=== PATIENT | female | born 1940 | race Caucasian/White ===

== ENCOUNTER → 2017-01-04 | Outpatient (CLI) | payer OTHER ==
[~2017-01-04] MED LIST: BYSTOLIC 5 MG5 M1; CIPROFLOXIN HC2.5 M1 OPHTHALMIC; COZAAR 25 MG TA25 M1; FLOXIN OTI0.3 %/5 M1 OT; KEFLEX500 MG PO; LIPITOR 10 MG10 M1; NORCO 5-325 TA1 EACH PO; NORVASC2.5 M1; WELCHOL3.75 GM
== END ==
LOC: CAT 09:58 → EDSTATUS 15:03
DX: Z13.6 Encounter for screening for cardiovascular disorders (principal)

== ENCOUNTER 2017-01-13 09:29 | Inpatient (IN) | payer OTHER ==
[~2017-01-13] VITALS: Ht 162.6 cm; Wt 71.2 kg
--- NOTE | ~2017-01-13 | EKG ---
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 JAIMES : 1940 Requested By: Faiza Lowry Order Number: [id number] MD: Kwame Jordan Measurements Intervals [place] Rate: 102 P: 72 OR: 177 QRS: 34 QRSD: 118 T: 31 QT: 385 QTc: 502 Interpretive Statements Sinus tachycardia Incomplete right bundle branch block Probable inferior infarct, old Probable anterolateral infarct, acute Compared to ECG 01/13/2017 10:04:23 Incomplete right bundle-branch block now present Myocardial infarct finding now present Electronically Signed On 01-18-2017 8:31:34 CDT by Kwame Jordan [email or web address] <ELECTRONICALLY SIGNED> By: Kwame Jordan MD, [facility] 01/18/17 0831 1548 1548 Kwame Jordan MD, [facility] /EPI
--- NOTE | ~2017-01-13 | 2DMMODE ---
[facility] [address] [place] [address] 2 D/M-MODE ECHOCARDIOGRAM Name: DIPAK ESCOBEDO STEPHANIE Room #: REG CL Marlen#: [id number] Admission: 01/13/17 Attend Phys: Walter Andres Discharge: Date of : 42 Date of Service: 01/13/17 1635 Report #: [id number] THIS REPORT FOR: //name// APPROVED REPORT Study performed: 01/13/2017 15:40:24 EXAM: Comprehensive 2D, Doppler, and color-flow Echocardiogram Patient Location: Bedside Room #: 5 Status: stat Other Information Study Quality: Adequate Indications Pre-Op Diabetes CAD Hypertension/HDD 2D Dimensions RVDd: 22.00 mm LVEF(%): 61.56 (>50%) IVSd: 8.14 (7-11mm) LVOT Diam: 17.73 (18-24mm) LVDd: 35.94 mm PWd: 7.18 (7-11mm) Ascending Ao: 25.71 (22-36mm) LVDs: 24.32 (25-40mm) Aortic Root: 25.99 mm IVC: 15.00 mm Callahan's LVEF: 61.56 % Volumes Left Atrial Volume (Systole) Single Plane 4CH: 33.38 mL Single Plane 2CH: 28.78 mL LA ESV Index: 19.00 mL/m2 Aortic Valve AoV Peak Gerald.: 1.42 m/s AO Peak Gr.: 8.09 mmHg LVOT Max P.02 mmHg LVOT Max V: 1.00 m/s BAMBI Vmax: 1.74 cm2 Mitral Valve E/A Ratio: 0.6 MV Decel. Time: 304.33 ms [facility] [address] [place] [address] 2 D/M-MODE ECHOCARDIOGRAM Name: DIPAK ESCOBEDO STEPHANIE Room #: [facility] Marlen#: [id number] Admission: 01/13/17 Attend Phys: Walter Andres Discharge: Date of : 42 Date of Service: 01/13/17 1635 Report #: [id number] MV E Max Gerald.: 0.61 m/s MV A Gerald.: 0.94 m/s MV PHT: 88.26 ms IVRT: 129.18 ms Pulmonary Valve PV Peak Gerald.: 0.95 m/s PV Peak Gr.: 3.62 mmHg Pulmonary Vein P Vein S: 0.44 m/s P Vein A: 0.30 m/s P Vein D: 0.28 m/s P Vein A Dur.: 129.2 msec P Vein S/D Ratio: 1.57 Tricuspid Valve RAP Estimate: 5.00 mmHg Left Ventricle The left ventricle is normal size. Regional wall motion is not well visualized but grossly normal. There is normal left ventricular wall thickness. The left ventricular systolic function is normal. The left ventricular ejection fraction is within the normal range. LVEF is 60%. Grade I diastolic dysfunction Right Ventricle The right ventricle is normal size. The right ventricular systolic function is normal. Atria The left atrium size is normal. The right atrium size is normal. Aortic Valve Aortic valve is calcified, trileaflet. No aortic regurgitation is present. There is no aortic valvular stenosis. Mitral Valve The mitral valve is normal in structure. There is no mitral valve regurgitation noted. No evidence of mitral valve stenosis. Tricuspid Valve The tricuspid valve is normal in structure. There is no tricuspid valve regurgitation noted. Pulmonic Valve The pulmonary valve is normal in structure. There is no pulmonic valvular regurgitation. [address] [address] 2 D/M-MODE ECHOCARDIOGRAM Name: DIPAK ESCOBEDO STEPHANIE Room #: REG BRIGETTE Gee#: [id number] Admission: 01/13/17 Attend Phys: Walter Andres Discharge: Date of : 42 Date of Service: 01/13/17 1635 Report #: [id number] Great Vessels The aortic root is normal in size. IVC is normal in size and collapses >50% with inspiration. Pericardium There is no pericardial effusion. <Conclusion> The left ventricular systolic function is normal. Regional wall motion is not well visualized but grossly normal. LVEF is 60%. Grade I diastolic dysfunction Aortic valve is calcified, trileaflet. No aortic regurgitation or stenosis. The mitral valve is normal in structure. No mitral valve regurgitation noted. Pulmonary artery pressure could not be reliably ascertained There is no pericardial effusion. <ELECTRONICALLY SIGNED> By: Kwame Jordan MD, [facility] 01/13/17 1635 1635 1635 Kwame Jordan MD, [facility] /INF
--- NOTE | ~2017-01-13 | EKG ---
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1940 Requested By: Faiza Lowry Order Number: [id number] MD: Kwame Jordan Measurements Intervals [place] Rate: 83 P: 21 TN: 172 QRS: 71 QRSD: 97 T: 9 QT: 411 QTc: 483 Interpretive Statements Sinus rhythm Anterolateral infarct, acute (LAD) Baseline wander in lead(s) V6 Compared to ECG 01/13/2017 10:04:23 anterior Q waves are more prominent Electronically Signed On 01-18-2017 8:55:44 CDT by Kwame Jordan [email or web address] <ELECTRONICALLY SIGNED> By: Kwame Jordan MD, [facility] 01/18/17 0855 0710 Kwame Jordan MD, [facility] /EPI
--- NOTE | ~2017-01-13 | EKG ---
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
--- NOTE | ~2017-01-13 | D ---
[facility] [place] [address] DISCHARGE SUMMARY Name: DIPAK ESCOBEDO Room #: 212-P DIS IN M.R.#: [id number] Admission: 01/13/17 Attend Phys: Walter Lane Discharge: 01/20/17 Date of : 42 Report #: [id number] THIS REPORT FOR: //name// CC: Walter Loomis Epstein DATE OF SERVICE: 01/20/2017 ADMITTING DIAGNOSES: 1. Abnormal perfusion scan. 2. Chest pain. DISCHARGE DIAGNOSES: 1. Coronary artery disease. 2. Dyslipidemia. PROCEDURE PERFORMED: 1. Left heart catheterization. 2. Aortocoronary bypass grafting. FOLLOWUP: Dr. Lane in 3 weeks and cardiothoracic surgery as per their orders. DISCHARGE MEDICATIONS: Metoprolol 25 mg p.o. b.i.d., atorvastatin 40 mg daily, omeprazole 20 mg daily, aspirin 325 daily, sublingual nitroglycerin p.r.n. DISCHARGE DIET: [place] [employer] step 1 diet. BRIEF CLINICAL HISTORY: See history and physical in chart. HOSPITAL COURSE: The patient was admitted to the hospital and underwent uncomplicated left heart catheterization. This demonstrated the presence of significant multivessel coronary artery disease best treated surgically. Consultation was obtained. The patient underwent uncomplicated aortocoronary bypass grafting with SVG to the circumflex and STUART to the LAD. Her postoperative course was electrically hemodynamically stable. She continued to improve on a daily basis and is being discharged in stable and improved condition with the previously stated discharge instructions and medications. <ELECTRONICALLY SIGNED> By: Walter Lane MD 01/25/[address] MD /nt
--- NOTE | ~2017-01-13 | CATHLAB ---
[facility] [address] [place] [address] INVASIVE PROCEDURE REPORT Name: DIPAK ESCOBEDO NOVEMBER Room #: 213-P ADM IN M.R.#: [id number] Admission: 01/13/17 Attend Phys: Walter Andres Discharge: Date of : 42 Date of Service: 01/14/17 1339 Report #: [id number] THIS REPORT FOR: //name// APPROVED REPORT Patient Details Patient Status: Out-Patient Room #: The patient is a 76 year-old female Event Personnel Walter Lane Director Oracle Database, Sarah Briscoe Monitor, Carlee Slade Monitor, Dianne Coyle RN RN, Richard Shea Scrub Procedures Performed Left heart catheterization, selective left and right coronary angiography, measurement of left ventricular end-diastolic pressure, supervision of conscious sedation Indication Positive stress test, Chest pain Procedure Narrative The Right Groin^ was infiltrated with 1% Lidocaine subcutaneous anesthesia. A PINNACLE 4FR Sheath #[id number] sheath was inserted into the RFA^. Coronary angiography was performed using coronary diagnostic catheters. The right coronary system was accessed and visualized with a JR4 catheter. The left coronary system was accessed and visualized with a JL4 catheter. The left ventricle was accessed and visualized with a PIGTAIL catheter. Left ventricular/Aortic Valve gradient assessed via catheter pullback. Hemostasis was obtained with manual pressure following sheath removal without any complications. The patient tolerated the procedure well and there were no complications associated with the procedure. There was no hematoma. Intraoperative Conscious Sedation Sedation start time: 13:32 Case end Time: 13:44 Versed 2.0 mg Fluoro Time: 2.17 minutes Dose: DAP 1702.40 cGycm2 243 mGy Contrast Type and Amount: Omnipaque 60 ml [facility] [address] [place] [address] INVASIVE PROCEDURE REPORT Name: DIPAK ESCOBEDO STEPHANIE Room #: 213-P [facility] ..#: [id number] Admission: 01/13/17 Attend Phys: Walter Andres Discharge: Date of : 42 Date of Service: 01/14/17 1339 Report #: [id number] Diagnostic Cath Left Main Normal origin and caliber bifurcates into left anterior descending left circumflex free of high-grade obstructive disease LAD Moderate caliber type II vessel which courses in the anterior interventricular sulcus in a rise to septal and diagonal branches. After a small caliber septal origin in the midportion of the mid LAD there is an eccentric 75 or greater percent stenosis of the LAD proper then continues towards the apex and terminates as a small bifurcating vessel at the apex Diagonal 1 Small-caliber vessel which had a 50% lesion proximally. Circumflex Moderate caliber vessel with a 50% lesion proximally. The vessel continues laterally where it terminates as a moderate caliber lateral wall marginal. At the beginning of the marginal portion there is a high-grade greater than 90% lesion any tortuous segment of the circumflex proper Right Coronary Moderate caliber vessel which appears to have an eccentric ostial lesion. Did continues any AV groove posteriorly gives rise to a small posterior descending artery and a small posterolateral branch R PDA Small-caliber for vessel free of high-grade disease RPLV Small caliber vessel which has a 90% proximal lesion then reconstitutes in courses in the inferolateral wall towards the apex Left Ventriculography Left Ventriculography was not performed. Hemodynamics The aortic pressure is 146/63 mmHg with a mean of 94 mmHg. The left ventricular pressure is 167/-3 mmHg with a mean of mmHg. The left ventricular end diastolic pressure is 17 mmHg. There was no gradient across the aortic valve upon pullback. Pullback from the left ventricle to the aorta revealed no gradient across the aortic valve. Conclusion 1. Coronary artery disease severe three-vessel 2. Abnormal hemodynamics with elevated left ventricular end-diastolic pressure Recommendations [facility] [address] [place] [address] INVASIVE PROCEDURE REPORT Name: DIPAK ESCOBEDO STEPHANIE Room #: 213-P [facility] IN M.R.#: [id number] Admission: 01/13/17 Attend Phys: Walter Andres Discharge: Date of : 42 Date of Service: 01/14/17 1339 Report #: [id number] Cardiac Risk Reduction Program CABG <ELECTRONICALLY SIGNED> By: Walter Lane MD 01/14/[address] MD /INF
[2017-01-13] MEDS ORDERED: LIPITOR40 MG PO (10:01)
[2017-01-13] MEDS ORDERED: COZAAR 50 MG TA50 M2 PO (10:02)
[2017-01-13] MEDS ORDERED: ASPIR 8181 M1 PO (10:02)
[2017-01-13] MEDS ORDERED: PRILOSEC OTC20 MG PO (10:02)
[2017-01-13 10:16] VITALS: BP 131/74
[2017-01-13 10:24] LABS: HEMATOCRIT 38.8 % (37.0-47.0); HEMOGLOBIN 13.3 gm/dL (12.0-15.0); MCH 30.3 pg (26.0-34.0); MCHC 34.3 g/dL (28.0-37.0); MCV 88.4 fL (80.0-100.0); RBC 4.39 mil/uL (4.20-5.00); RDW 13.6 % (10.5-14.5); WBC 5.9 thou/uL (4.0-11.0)
[2017-01-13 10:29] LABS: CALCIUM 9.4 mg/dL (8.5-10.1); CREATININE 1.1 mg/dL (0.6-1.0); POTASSIUM 3.7 mmol/L (3.5-5.1)
[2017-01-13 16:26] LABS: HEMATOCRIT 38.6 % (37.0-47.0); HEMOGLOBIN 13.1 gm/dL (12.0-15.0); MCH 30.8 pg (26.0-34.0); MCHC 33.9 g/dL (28.0-37.0); MCV 90.8 fL (80.0-100.0); RBC 4.25 mil/uL (4.20-5.00); RDW 13.8 % (10.5-14.5); WBC 6.3 thou/uL (4.0-11.0)
[2017-01-13 16:33] LABS: CALCIUM 9.3 mg/dL (8.5-10.1); POTASSIUM 3.7 mmol/L (3.5-5.1)
[2017-01-13 16:39] LABS: ALBUMIN 3.5 g/dL (3.4-5.0); TOTAL BILIRUBIN 0.8 mg/dL (<0.1-1.0); TOTAL PROTEIN 7.2 g/dL (6.4-8.2)
[2017-01-13 16:58] LABS: APTT 25.7 Seconds (24.5-32.8); PROTIME 10.3 Seconds (9.3-11.4)
[2017-01-13 17:50] VITALS: BP 156/78
[2017-01-13 20:31] VITALS: BP 122/65
[2017-01-13 23:56] VITALS: BP 122/57
[2017-01-14 01:11] LABS: GLYCOHEMOGLOBIN (HGB A1C) 5.8 % (4.8-5.6)
[2017-01-14 04:00] VITALS: BP 152/82
[2017-01-14 08:37] VITALS: BP 151/83
[2017-01-14 12:27] VITALS: BP 141/80
[2017-01-14 16:21] VITALS: BP 154/88
[2017-01-14 17:39] LABS: URINE BILIRUBIN NEGATIVE (Negative); URINE BLOOD TRACE (Negative); URINE COLOR YELLOW; URINE GLUCOSE-RANDOM* NEGATIVE (Negative); URINE KETONES NEGATIVE (Negative); URINE LEUKOCYTES-REFLEX NEGATIVE (Negative); URINE PROTEIN (DIPSTICK) NEGATIVE (Negative); URINE SPECIFIC GRAVITY 1.015 (1.003-1.035); URINE UROBILINOGEN 0.2 E.U./dl (0.2-1.0)
[2017-01-14 20:37] VITALS: BP 151/76
[2017-01-15] VITALS (9 sets, daily range): BP systolic 97–167; BP diastolic 56–83
[2017-01-15 13:37] LABS: POC BE -2 mmol/L (-2.0 to +3.0); POC CA IONIZED 4.1 mg/dL (4.5-5.3); POC FiO2 100 %; POC GLUCOSE 156 mg/dL (70-99); POC HCO3 23.3 mmol/L (22.0-26.0); POC HEMOGLOBIN 7.5 g/dL (12.0-15.0); POC POTASSIUM 3.9 mmol/L (3.5-5.1); POC SODIUM 136 mmol/L (136-145); POC pCO2 39.1 mmHg (35.0-45.0); POC pH 7.383 (7.360-7.450)
[2017-01-15 13:37] LABS: POC BE 2 mmol/L (-2.0 to +3.0); POC CA IONIZED 4.3 mg/dL (4.5-5.3); POC FiO2 100 %; POC GLUCOSE 157 mg/dL (70-99); POC HCO3 26.8 mmol/L (22.0-26.0); POC HEMOGLOBIN 7.8 g/dL (12.0-15.0); POC POTASSIUM 3.9 mmol/L (3.5-5.1); POC SODIUM 139 mmol/L (136-145); POC pCO2 44.5 mmHg (35.0-45.0); POC pH 7.388 (7.360-7.450)
[2017-01-15 13:37] LABS: POC BE 0 mmol/L (-2.0 to +3.0); POC CA IONIZED 4.8 mg/dL (4.5-5.3); POC FiO2 100 %; POC GLUCOSE 121 mg/dL (70-99); POC HCO3 24.3 mmol/L (22.0-26.0); POC HEMOGLOBIN 10.5 g/dL (12.0-15.0); POC POTASSIUM 3.8 mmol/L (3.5-5.1); POC SODIUM 140 mmol/L (136-145); POC pCO2 34.1 mmHg (35.0-45.0)
[2017-01-15 13:37] LABS: POC BE 2 mmol/L (-2.0 to +3.0); POC CA IONIZED 5.6 mg/dL (4.5-5.3); POC FiO2 100 %; POC GLUCOSE 139 mg/dL (70-99); POC HCO3 26.9 mmol/L (22.0-26.0); POC HEMOGLOBIN 6.8 g/dL (12.0-15.0); POC POTASSIUM 3.6 mmol/L (3.5-5.1); POC SODIUM 141 mmol/L (136-145); POC pCO2 41.1 mmHg (35.0-45.0); POC pH 7.423 (7.360-7.450)
[2017-01-15 13:37] LABS: POC BE -3 mmol/L (-2.0 to +3.0); POC CA IONIZED 4.4 mg/dL (4.5-5.3); POC FiO2 100 %; POC GLUCOSE 163 mg/dL (70-99); POC HCO3 23.4 mmol/L (22.0-26.0); POC HEMOGLOBIN 7.1 g/dL (12.0-15.0); POC POTASSIUM 4.1 mmol/L (3.5-5.1); POC SODIUM 136 mmol/L (136-145); POC pCO2 46.4 mmHg (35.0-45.0)
[2017-01-15 13:37] LABS: POC BE -1 mmol/L (-2.0 to +3.0); POC CA IONIZED 5.2 mg/dL (4.5-5.3); POC FiO2 100 %; POC GLUCOSE 120 mg/dL (70-99); POC HCO3 23.5 mmol/L (22.0-26.0); POC HEMOGLOBIN 5.8 g/dL (12.0-15.0); POC POTASSIUM 3.3 mmol/L (3.5-5.1); POC SODIUM 139 mmol/L (136-145); POC pCO2 36.2 mmHg (35.0-45.0); POC pH 7.419 (7.360-7.450)
[2017-01-15 13:37] LABS: POC BE -1 mmol/L (-2.0 to +3.0); POC CA IONIZED 4.7 mg/dL (4.5-5.3); POC FiO2 100 %; POC GLUCOSE 150 mg/dL (70-99); POC HCO3 24.5 mmol/L (22.0-26.0); POC HEMOGLOBIN 10.2 g/dL (12.0-15.0); POC POTASSIUM 3.5 mmol/L (3.5-5.1); POC SODIUM 138 mmol/L (136-145); POC pCO2 41.3 mmHg (35.0-45.0); POC pH 7.382 (7.360-7.450)
[2017-01-15 13:37] LABS: POC BE -7 mmol/L (-2.0 to +3.0); POC CA IONIZED 4.3 mg/dL (4.5-5.3); POC FiO2 100 %; POC GLUCOSE 153 mg/dL (70-99); POC HCO3 19.3 mmol/L (22.0-26.0); POC HEMOGLOBIN 8.8 g/dL (12.0-15.0); POC POTASSIUM 3.8 mmol/L (3.5-5.1); POC SODIUM 139 mmol/L (136-145); POC pH 7.337 (7.360-7.450)
[2017-01-15 13:37] LABS: POC BE -2 mmol/L (-2.0 to +3.0); POC CA IONIZED 5.1 mg/dL (4.5-5.3); POC FiO2 100 %; POC GLUCOSE 99 mg/dL (70-99); POC HCO3 22.8 mmol/L (22.0-26.0); POC HEMOGLOBIN 7.1 g/dL (12.0-15.0); POC POTASSIUM 3.4 mmol/L (3.5-5.1); POC SODIUM 142 mmol/L (136-145); POC pH 7.375 (7.360-7.450)
[2017-01-15 14:09] LABS: HEMATOCRIT 29.6 % (37.0-47.0); MCH 30.8 pg (26.0-34.0); MCHC 34.4 g/dL (28.0-37.0); MCV 89.5 fL (80.0-100.0); RBC 3.31 mil/uL (4.20-5.00); RDW 13.3 % (10.5-14.5); WBC 12.9 thou/uL (4.0-11.0)
[2017-01-15 14:14] LABS: CREATININE 0.9 mg/dL (0.6-1.0); MAGNESIUM 2.5 mg/dL (1.8-2.4); POTASSIUM 4.1 mmol/L (3.5-5.1)
[2017-01-15 14:21] LABS: HEMOGLOBIN 10.2 gm/dL (12.0-15.0)
[2017-01-15 14:24] LABS: ABG SAMPLE TYPE ARTERIAL; HCO3 19.3 mmol/L (22.0-26.0); LACTATE 1.35 mmol/L (0.5-2.0); O2(CT) 16.2 mL/dL (15.0-23.0); O2Hb 94.7 % (92.0-98.0); PCO2 37.4 mmHg (35.0-45.0); PO2 84.7 mmHg (80.0-100.0); STICK SITE LINE; pH 7.331 (7.360-7.450); sO2 95.8 % (92.0-98.0); tCO2 20.5 mmol/L (24.0-30.0)
[2017-01-15 14:25] LABS: TIDAL VOLUME 500 ml
[2017-01-15 14:26] LABS: APTT 30.4 Seconds (24.5-32.8); INR 1.2; PROTIME 12.7 Seconds (9.3-11.4)
[2017-01-15 16:49] LABS: ABG SAMPLE TYPE ARTERIAL; HCO3 19.5 mmol/L (22.0-26.0); LACTATE 1.62 mmol/L (0.5-2.0); O2(CT) 16.6 mL/dL (15.0-23.0); PCO2 30.9 mmHg (35.0-45.0); PO2 134.9 mmHg (80.0-100.0); STICK SITE LINE; TIDAL VOLUME 500 ml; pH 7.418 (7.360-7.450); sO2 98.8 % (92.0-98.0); tCO2 20.5 mmol/L (24.0-30.0)
[2017-01-15 16:50] LABS: ABG COMMENT PRE-CPAP ABG
[2017-01-15 17:56] LABS: APTT 34.2 Seconds (24.5-32.8); INR 1.1; PROTIME 11.5 Seconds (9.3-11.4)
[2017-01-15 18:06] LABS: HEMATOCRIT 33.9 % (37.0-47.0); HEMOGLOBIN 11.7 gm/dL (12.0-15.0); MCH 30.7 pg (26.0-34.0); MCHC 34.4 g/dL (28.0-37.0); MCV 89.2 fL (80.0-100.0); RBC 3.8 mil/uL (4.20-5.00); RDW 13.6 % (10.5-14.5); WBC 15.2 thou/uL (4.0-11.0)
[2017-01-15 18:13] LABS: CALCIUM 8.5 mg/dL (8.5-10.1); MAGNESIUM 2.3 mg/dL (1.8-2.4)
[2017-01-15 20:19] LABS: ABG COMMENT CPAP5/6 50%; ABG SAMPLE TYPE ARTERIAL; BE(vivo) -1.3 mmol/L (-2 to +3); HCO3 22.5 mmol/L (22.0-26.0); LACTATE 2.21 mmol/L (0.5-2.0); O2(CT) 17.4 mL/dL (15.0-23.0); O2Hb 96.5 % (92.0-98.0); Pressure Support 6 cm H20; STICK SITE LINE; pH 7.426 (7.360-7.450); sO2 98.1 % (92.0-98.0); tCO2 23.6 mmol/L (24.0-30.0)
[2017-01-15 21:35] LABS: ABG SAMPLE TYPE ARTERIAL; Face Shield 60 %; HCO3 22.4 mmol/L (22.0-26.0); LACTATE 3.29 mmol/L (0.5-2.0); O2(CT) 17.6 mL/dL (15.0-23.0); O2Hb 97.3 % (92.0-98.0); PCO2 37.1 mmHg (35.0-45.0); STICK SITE LINE; pH 7.399 (7.360-7.450); sO2 98.9 % (92.0-98.0); tCO2 23.6 mmol/L (24.0-30.0)
[2017-01-15 21:36] LABS: ABG COMMENT 1HR POST EXTUBATION
[2017-01-16] VITALS (17 sets, daily range): BP systolic 93–136; BP diastolic 51–80
[2017-01-16 06:06] LABS: HEMOGLOBIN 11.4 gm/dL (12.0-15.0); MCH 30.7 pg (26.0-34.0); MCHC 34.7 g/dL (28.0-37.0); MCV 88.7 fL (80.0-100.0); RBC 3.72 mil/uL (4.20-5.00); RDW 14.1 % (10.5-14.5)
[2017-01-16 06:16] LABS: CALCIUM 8.4 mg/dL (8.5-10.1); CREATININE 0.9 mg/dL (0.6-1.0); MAGNESIUM 2.2 mg/dL (1.8-2.4)
[2017-01-17] VITALS (17 sets, daily range): BP systolic 102–131; BP diastolic 58–82
[2017-01-17 05:12] LABS: HEMATOCRIT 31.3 % (37.0-47.0); HEMOGLOBIN 10.7 gm/dL (12.0-15.0); MCH 30.5 pg (26.0-34.0); MCHC 34.3 g/dL (28.0-37.0); RBC 3.51 mil/uL (4.20-5.00); RDW 14.2 % (10.5-14.5); WBC 13.8 thou/uL (4.0-11.0)
[2017-01-17 05:29] LABS: CALCIUM 8.5 mg/dL (8.5-10.1); POTASSIUM 4.1 mmol/L (3.5-5.1)
[2017-01-18 00:01] VITALS: BP 106/68
[2017-01-18 04:00] VITALS: BP 132/74
[2017-01-18 09:17] VITALS: BP 149/94
[2017-01-18 12:15] VITALS: BP 109/62
[2017-01-18 15:41] VITALS: BP 109/65
[2017-01-18 19:39] VITALS: BP 139/82
[2017-01-19 03:54] VITALS: BP 130/72
[2017-01-19 06:07] LABS: HEMATOCRIT 32.1 % (37.0-47.0); HEMOGLOBIN 10.9 gm/dL (12.0-15.0)
[2017-01-19 06:26] LABS: CALCIUM 8.4 mg/dL (8.5-10.1); CREATININE 0.9 mg/dL (0.6-1.0)
[2017-01-19 07:17] VITALS: BP 151/77
[2017-01-19 09:46] LABS: MAGNESIUM 2.1 mg/dL (1.8-2.4)
[2017-01-19 11:30] VITALS: BP 132/74
[2017-01-19 15:30] VITALS: BP 153/81
[2017-01-19 20:18] VITALS: BP 140/76
[2017-01-20 04:25] VITALS: BP 151/67
[2017-01-20 07:15] VITALS: BP 131/89
[2017-01-20 10:13] VITALS: BP 131/89
[2017-01-20 10:33] VITALS: BP 131/89
[2017-01-20] MEDS ORDERED: LOPRESSOR25 PO (10:38)
[2017-01-20] MEDS ORDERED: NITROGLYCERIN0.4 MG SUBLING (10:39)
[2017-01-20] MEDS ORDERED: ATORVASTATIN CA40 MG PO (10:39)
[2017-01-20] MEDS ORDERED: OMEPRAZOLE20 M1 PO (10:39)
[2017-01-20] MEDS ORDERED: ASPIRIN325 PO (10:39)
== END 2017-01-20 17:02 | disposition home or self-care (01) | DRG 234 ==
LOC: CATH 09:29 → 2N 17:32 → CATH 17:33 → TBA 17:34 → 2N 17:34 → TBA 01-15 07:30 → ICU 01-15 15:02 → 2N 01-17 16:28
PROVIDERS: Anesthesiology; Internal Medicine; Nurse Practitioner
PROC: 4A023N7 Measurement of Cardiac Sampling and Pressure, Left Heart, Percutaneous Approach (ICD-10-PCS; principal; 2017-01-13)
PROC: B2111ZZ Fluoroscopy of Multiple Coronary Arteries using Low Osmolar Contrast (ICD-10-PCS; principal; 2017-01-13)
PROC: B2151ZZ Fluoroscopy of Left Heart using Low Osmolar Contrast (ICD-10-PCS; principal; 2017-01-13)
PROC: 5A1221Z Performance of Cardiac Output, Continuous (ICD-10-PCS; 2017-01-15)
PROC: 02100Z9 Bypass Coronary Artery, One Artery from Left Internal Mammary, Open Approach (ICD-10-PCS; 2017-01-15)
PROC: 021009W Bypass Coronary Artery, One Artery from Aorta with Autologous Venous Tissue, Open Approach (ICD-10-PCS; 2017-01-15)
PROC: 30233N1 Transfusion of Nonautologous Red Blood Cells into Peripheral Vein, Percutaneous Approach (ICD-10-PCS; 2017-01-15)
PROC: 06BQ4ZZ Excision of Left Saphenous Vein, Percutaneous Endoscopic Approach (ICD-10-PCS; 2017-01-15)
DX: I25.10 Atherosclerotic heart disease of native coronary artery without angina pectoris (principal); E78.5 Hyperlipidemia, unspecified; I11.0 Hypertensive heart disease with heart failure; E11.9 Type 2 diabetes mellitus without complications; I50.9 Heart failure, unspecified; M81.0 Age-related osteoporosis without current pathological fracture; Z79.82 Long term (current) use of aspirin; Z79.899 Other long term (current) drug therapy; Z88.0 Allergy status to penicillin; Z82.49 Family history of ischemic heart disease and other diseases of the circulatory system
CPT/HCPCS: 10078; 10081; 47000; 47001; 47002; 47297; 48888; 50010; 50249; 50409; 50456; 50497; 50668; 51089; 51301; 52131; 52259; 53327; 53358; 54118; 56524; 56525; 56526; 56527; 56528; 56531; 56534; 56638; 56639; 56660; 56668; 56760; 56898; 57093; 62110; 62950; 64029; 65002; 65003; 65020; 65043; 65090

== ENCOUNTER → 2017-02-08 | Outpatient (CLI) | payer OTHER ==
[~2017-02-08] MED LIST changes: +ASPIR 8181 M1 PO; +ASPIRIN325 PO; +ATORVASTATIN CA40 MG PO; +COZAAR 50 MG TA50 M2 PO; +LIPITOR40 MG PO; +LOPRESSOR25 PO; +NITROGLYCERIN0.4 MG SUBLING; +OMEPRAZOLE20 M1 PO; +PRILOSEC OTC20 MG PO
== END ==
LOC: RAD 12:32
DX: J90 Pleural effusion, not elsewhere classified (principal); Z98.890 Other specified postprocedural states

== ENCOUNTER → 2020-02-13 | Outpatient (CLI) | payer OTHER | LOC: SJCVC 13:21 | PROVIDERS: ATTEND Internal Medicine | DX: I25.10 Atherosclerotic heart disease of native coronary artery without angina pectoris (principal); R94.31 Abnormal electrocardiogram [ECG] [EKG]; I10 Essential (primary) hypertension; E78.5 Hyperlipidemia, unspecified; E11.9 Type 2 diabetes mellitus without complications; Z79.899 Other long term (current) drug therapy ==

== ENCOUNTER → 2020-04-30 | Outpatient (CLI) | payer OTHER | LOC: SJCVC 10:35 | PROVIDERS: ATTEND Internal Medicine | DX: E78.5 Hyperlipidemia, unspecified (principal); I10 Essential (primary) hypertension; I25.10 Atherosclerotic heart disease of native coronary artery without angina pectoris; Z68.24 Body mass index [BMI] 24.0-24.9, adult; Z79.899 Other long term (current) drug therapy ==